=== PATIENT | male | born 1955 | race Asian ===

== ENCOUNTER 2024-12-29 21:37 | Inpatient (IN) | payer OTHER ==
[~2024-12-29] VITALS: Ht 172.7 cm; Wt 75.3 kg
[2024-12-29] MEDS ORDERED: GABA100C PO (21:53)
[2024-12-29] MEDS ORDERED: FOLI0.8T43 PO (21:53)
[2024-12-29] MEDS ORDERED: ATOR80TA PO (21:53)
[2024-12-29] MEDS ORDERED: ACET325T53 PO (21:53)
[2024-12-29] MEDS ORDERED: AMLO10TA59 PO (21:53)
[2024-12-29] MEDS ORDERED: GUAI100S69 PO (21:53)
[2024-12-29] MEDS ORDERED: HYDR-4077 PO (21:53)
[2024-12-29] MEDS ORDERED: TEMA7.5C PO (21:53)
[2024-12-29] MEDS ORDERED: FURO40TA5 PO (21:53)
[2024-12-29] MEDS ORDERED: ASPI81TA31 PO (21:53)
[2024-12-29] MEDS ORDERED: FAMO20TA8 PO (21:53)
[2024-12-29] MEDS ORDERED: BACL5TAB PO (21:53)
[2024-12-29] MEDS ORDERED: CARV25TA2 PO (21:53)
[2024-12-29] MEDS ORDERED: LOSA100T31 PO (21:53)
[2024-12-29] MEDS ORDERED: SEVE800T8 PO (21:53)
[2024-12-29 22:06] LABS: BASOPHILS % (AUTO) 0.3 % (0.0-2.0); EOSINOPHILS # (AUTO) 0.3 K/uL (0.0-0.7); EOSINOPHILS % (AUTO) 1.9 % (0.0-7.0); HEMATOCRIT 30.2 % (36.7-47.1); HEMOGLOBIN 10.2 g/dL (12.5-16.3); LYMPHOCYTES # (AUTO) 0.6 K/uL (0.8-4.8); LYMPHOCYTES % (AUTO) 4.5 % (20.5-51.5); MEAN CORPUSCULAR HGB CONC 34 g/dL (32.5-36.3); MEAN CORPUSCULAR VOLUME 98.2 fL (73.0-96.2); MONOCYTES # (AUTO) 0.9 K/uL (0.1-1.30); MONOCYTES % (AUTO) 6.5 % (0.0-11.0); NEUTROPHILS # (AUTO) 12.1 K/uL (1.8-8.9); NEUTROPHILS % (AUTO) 86.8 % (38.5-71.5); PLATELET COUNT (AUTO) 103 K/uL (152-348); RED BLOOD CELL COUNT(AUTO) 3.08 MIL/uL (4.06-5.63); RED CELL DISTRIBUTION WIDTH 17.9 % (12.1-16.2)
[2024-12-29 22:15] LABS: DIFFERENTIAL COMMENT 1
[2024-12-29 22:25] LABS: CARBON DIOXIDE 29 mmol/L (21-32); CHLORIDE 101 mmol/L (98-107); GLUCOSE 142 mg/dL (74-106); SODIUM SERUM 139 mmol/L (136-145)
[2024-12-29 22:28] LABS: POTASSIUM 7.5 mmol/L (3.5-5.1); UREA NITROGEN, BLOOD 100 mg/dL (7-18)
[2024-12-29 22:29] LABS: CREATININE 11.3 mg/dL (0.6-1.3)
[2024-12-29 22:37] LABS: ALANINE AMINOTRANSFERASE 23 U/L (16-63); ALBUMIN 3.3 g/dL (3.4-5.0); ALKALINE PHOSPHATASE 137 U/L (50-136); ASPARTATE AMINOTRANSFERASE 17 U/L (15-37); BILIRUBIN,DIRECT 0.2 mg/dL (0.0-0.2); BILIRUBIN,TOTAL 0.6 mg/dL (0.2-1.0); NT-PRO BNP 45077 pg/mL (0-125); TOTAL PROTEIN, SERUM 7.3 g/dL (6.4-8.2)
[2024-12-29 22:43] VITALS: O2SAT 97
[2024-12-29] MEDS: CEFEPIME HCL 2 G in IV DEXTROSE 5% 100 ML IV ONE (22:45)
[2024-12-29] MEDS ORDERED: CEFEPIME HCL 1 G VIAL ONE (22:50)
[2024-12-29] MEDS ORDERED: DEXTROSE 50% 50 ML DISP.SYRIN ONE (22:50)
[2024-12-29] MEDS ORDERED: SODIUM BICARBONATE 8.4% 50 MEQ/50 ML DISP.SYRIN IV ONE (22:50)
[2024-12-29] MEDS ORDERED: INSULIN REGULAR, HUMAN 1000 UNIT/10 ML VIAL ONE (22:51)
[2024-12-29 22:59] VITALS: O2SAT 97
[2024-12-29] MEDS ORDERED: CALCIUM GLUCONATE 1 GM/10 ML VIAL IV ONE (22:59)
[2024-12-29] MEDS: ALBUTEROL SULFATE 2.5 MG/3 ML NEBU NEB ONE (22:59)
[2024-12-29] MEDS ORDERED: ALBUTEROL SULFATE 2.5 MG/3 ML NEBU ONE (23:05)
[2024-12-29] MEDS: SODIUM BICARBONATE 8.4% 50 MEQ/50 ML VIAL IV ONE (23:25)
[2024-12-29] MEDS: DEXTROSE 50% 50 ML DISP.SYRIN IV ONE (23:27)
[2024-12-29] MEDS: INSULIN REGULAR, HUMAN 1000 UNIT/10 ML VIAL IV ONE (23:28)
[2024-12-29] MEDS: CALCIUM GLUCONATE IV 1 GM in IV DEXTROSE 5% 50 ML IV ONE (23:28)
[2024-12-29 23:45] VITALS: O2SAT 100
[2024-12-30] VITALS (11 sets, daily range): BP systolic 98–164; BP diastolic 29–72; TEMP 98–99.2; O2SAT 35–100
[2024-12-30] MEDS ORDERED: MAGNESIUM HYDROXIDE 30 ML LIQUID UDC PO PRN (00:45)
[2024-12-30] MEDS ORDERED: ONDANSETRON 4 MG/2 ML VIAL IV PRN (00:45)
[2024-12-30] MEDS ORDERED: ACETAMINOPHEN 325 MG TABLET PO PRN (00:45)
[2024-12-30] MEDS ORDERED: AZITHROMYCIN 500MG/ D5W 250ML IVPB **ER PYXIS ONLY IV ONE (01:08)
[2024-12-30] MEDS: AZITHROMYCIN IV 500 MG in IV DEXTROSE 5% 250 ML IV SCH (01:22)
[2024-12-30] MEDS ORDERED: DEXTROSE 50% 50 ML DISP.SYRIN IV PRN (03:30)
[2024-12-30 04:59] LABS: ABG BASE EXCESS 0.7 mmol/L (-2.0-3.0); ABG PCO2 44.3 mmHg (35.0-48.0); ABG PH 7.386 (7.350-7.450); ABG PO2 79.1 mmHg (83.0-108.0); ABG SITE LEFT RADIAL; ABG TOTAL HEMOGLOBIN 10.7 G/dL (13.5-17.5); AaDO2 95.5 mmHg; COHb 1.2 % (0.5-1.5)
[2024-12-30 05:01] LABS: ABG BASE EXCESS 6.1 mmol/L (-2.0-3.0); ABG HCO3 30.8 mmol/L (21.0-28.0); ABG PCO2 45.1 mmHg (35.0-48.0); ABG PH 7.452 (7.350-7.450); ABG PO2 138.1 mmHg (83.0-108.0); ABG SITE LEFT RADIAL; ABG TOTAL HEMOGLOBIN 10.8 G/dL (13.5-17.5); AaDO2 98.8 mmHg; MetHb 0.1 % (0.0-1.5); O2Hb 98.7 % (94.0-98.0)
[2024-12-30] MEDS: BLOOD SUGAR DIAGNOSTIC 1 EACH STRIP VI SCH (07:30)
[2024-12-30] MEDS: SEVELAMER CARBONATE 800 MG TABLET PO SCH (08:00)
[2024-12-30] MEDS ORDERED: BACLOFEN 10 MG TABLET PO SCH (09:00)
[2024-12-30] MEDS: ASPIRIN 81 MG TAB.CHEW PO SCH (09:00)
[2024-12-30] MEDS: FOLIC ACID/VITAMIN B COMP W-C TABLET PO SCH (09:00)
[2024-12-30] MEDS: CARVEDILOL 25 MG TABLET PO SCH (09:00)
[2024-12-30] MEDS ORDERED: FAMOTIDINE 20 MG TABLET PO SCH ×2 (09:00)
[2024-12-30] MEDS: PANTOPRAZOLE SODIUM 40 MG VIAL IV SCH (09:00)
[2024-12-30] MEDS: AMLODIPINE 10 MG TABLET PO SCH (09:00)
[2024-12-30] MEDS: FUROSEMIDE 40 MG TABLET PO SCH (09:00)
[2024-12-30] MEDS: HEPARIN SODIUM,PORCINE 5,000 UNITS/ML VIAL SQ SCH (10:15)
[2024-12-30 10:16] LABS: CARBON DIOXIDE 31 mmol/L (21-32); CHLORIDE 99 mmol/L (98-107); GLUCOSE 88 mg/dL (74-106); POTASSIUM 5.7 mmol/L (3.5-5.1); SODIUM SERUM 139 mmol/L (136-145); UREA NITROGEN, BLOOD 59 mg/dL (7-18)
[2024-12-30 10:23] LABS: CREATININE 7.7 mg/dL (0.6-1.3)
[2024-12-30] MEDS ORDERED: HEPARIN SODIUM,PORCINE 5,000 UNITS/ML VIAL ONE (14:59)
[2024-12-30] MEDS: BACLOFEN 10 MG TABLET PO SCH (17:24)
[2024-12-30] MEDS: PIPERACILLIN/TAZO 2.25 G in IV DEXTROSE 5% 50 ML IV SCH (18:50)
[2024-12-30] MEDS: ATORVASTATIN 40 MG TABLET PO SCH (20:30)
[2024-12-30] MEDS: GABAPENTIN 100 MG CAPSULE PO SCH (20:30)
[2024-12-30] MEDS ORDERED: CEFTRIAXONE 1 G in IV DEXTROSE 5% 50 ML IV SCH (22:00)
[2024-12-30] MEDS ORDERED: AZITHROMYCIN IV 500 MG in IV DEXTROSE 5% 250 ML IV SCH (23:00)
[2024-12-31] VITALS (9 sets, daily range): BP systolic 110–133; BP diastolic 43–54; TEMP 97.4–99.4; O2SAT 93–100
[2024-12-31 07:00] LABS: BASOPHILS % (AUTO) 0.3 % (0.0-2.0); EOSINOPHILS # (AUTO) 0.3 K/uL (0.0-0.7); EOSINOPHILS % (AUTO) 3.3 % (0.0-7.0); HEMATOCRIT 25.6 % (36.7-47.1); HEMOGLOBIN 8.8 g/dL (12.5-16.3); LYMPHOCYTES # (AUTO) 0.9 K/uL (0.8-4.8); MEAN CORPUSCULAR HEMOGLOBIN 33.8 uug (23.8-33.4); MEAN CORPUSCULAR HGB CONC 35 g/dL (32.5-36.3); MONOCYTES # (AUTO) 0.9 K/uL (0.1-1.30); MONOCYTES % (AUTO) 8.9 % (0.0-11.0); NEUTROPHILS # (AUTO) 7.6 K/uL (1.8-8.9); NEUTROPHILS % (AUTO) 78.5 % (38.5-71.5); PLATELET COUNT (AUTO) 75 K/uL (152-348); RED BLOOD CELL COUNT(AUTO) 2.61 MIL/uL (4.06-5.63); RED CELL DISTRIBUTION WIDTH 17.6 % (12.1-16.2); WHITE BLOOD COUNT (AUTO) 9.7 K/uL (3.6-10.2)
[2024-12-31 07:23] LABS: DIFFERENTIAL COMMENT 1
[2024-12-31 07:30] LABS: CALCIUM 9.1 mg/dL (8.5-10.1); CARBON DIOXIDE 31 mmol/L (21-32); CHLORIDE 100 mmol/L (98-107); GLUCOSE 96 mg/dL (74-106); MAGNESIUM 2.2 mg/dL (1.8-2.4); POTASSIUM 5.9 mmol/L (3.5-5.1); SODIUM SERUM 141 mmol/L (136-145); UREA NITROGEN, BLOOD 79 mg/dL (7-18)
[2024-12-31 07:43] LABS: CREATININE 9.7 mg/dL (0.6-1.3); PHOSPHOROUS 8.9 mg/dL (2.5-4.9)
[2024-12-31 08:28] LABS: ABG BASE EXCESS 1.9 mmol/L (-2.0-3.0); ABG HCO3 26.8 mmol/L (21.0-28.0); ABG PCO2 42.9 mmHg (35.0-48.0); ABG PH 7.413 (7.350-7.450); ABG PO2 65.4 mmHg (83.0-108.0); ABG SITE LEFT RADIAL; ABG TOTAL HEMOGLOBIN 9.8 G/dL (13.5-17.5); AaDO2 93.1 mmHg; COHb 0.7 % (0.5-1.5); MetHb 0.3 % (0.0-1.5); O2Hb 89.5 % (94.0-98.0)
[2024-12-31] MEDS: PANTOPRAZOLE SODIUM 40 MG TABLET.DR PO SCH (08:54)
[2024-12-31] MEDS: INSULIN REGULAR, HUMAN 1000 UNIT/10 ML VIAL SQ PRN (12:11)
[2024-12-31] MEDS: MEROPENEM 500 MG in IV NORMAL SALINE 50 ML IV SCH (20:06)
[2024-12-31] MEDS ORDERED: MEROPENEM 500 MG in IV NORMAL SALINE 50 ML IV SCH (21:00)
[2025-01-01] VITALS (8 sets, daily range): BP systolic 113–164; BP diastolic 45–60; TEMP 97.8–99.9; O2SAT 94–97
[2025-01-01 07:32] LABS: BASOPHILS % (AUTO) 0.3 % (0.0-2.0); EOSINOPHILS # (AUTO) 0.3 K/uL (0.0-0.7); EOSINOPHILS % (AUTO) 4.9 % (0.0-7.0); HEMATOCRIT 27.6 % (36.7-47.1); HEMOGLOBIN 9.1 g/dL (12.5-16.3); LYMPHOCYTES # (AUTO) 0.5 K/uL (0.8-4.8); LYMPHOCYTES % (AUTO) 7.3 % (20.5-51.5); MEAN CORPUSCULAR HEMOGLOBIN 33.3 uug (23.8-33.4); MEAN CORPUSCULAR HGB CONC 33 g/dL (32.5-36.3); MEAN CORPUSCULAR VOLUME 100.6 fL (73.0-96.2); MONOCYTES # (AUTO) 0.8 K/uL (0.1-1.30); MONOCYTES % (AUTO) 11.6 % (0.0-11.0); NEUTROPHILS # (AUTO) 5.2 K/uL (1.8-8.9); NEUTROPHILS % (AUTO) 75.9 % (38.5-71.5); PLATELET COUNT (AUTO) 65 K/uL (152-348); RED BLOOD CELL COUNT(AUTO) 2.74 MIL/uL (4.06-5.63); RED CELL DISTRIBUTION WIDTH 17.8 % (12.1-16.2); WHITE BLOOD COUNT (AUTO) 6.9 K/uL (3.6-10.2)
[2025-01-01 07:41] LABS: CALCIUM 9.3 mg/dL (8.5-10.1); CARBON DIOXIDE 25 mmol/L (21-32); CHLORIDE 99 mmol/L (98-107); GLUCOSE 88 mg/dL (74-106); MAGNESIUM 2.2 mg/dL (1.8-2.4); PHOSPHOROUS 6.2 mg/dL (2.5-4.9); POTASSIUM 5.2 mmol/L (3.5-5.1); SODIUM SERUM 138 mmol/L (136-145); UREA NITROGEN, BLOOD 58 mg/dL (7-18)
[2025-01-01 07:42] LABS: DIFFERENTIAL COMMENT 1
[2025-01-01 07:47] LABS: C-REACTIVE PROTEIN 18.76 mg/dL (0.00-0.30)
[2025-01-01] MEDS: hydrALAZINE HCL 50 MG TABLET PO PRN (20:35)
[2025-01-02 03:11] LABS: HEPATITIS B SURFACE AB, QUAL Reactive (.); HEPATITIS B SURFACE AG Negative (Negative)
[2025-01-02 06:10] VITALS: BP 144/52; TEMP 98.2; O2SAT 95
[2025-01-02 07:32] LABS: BASOPHILS % (AUTO) 0.5 % (0.0-2.0); EOSINOPHILS # (AUTO) 0.2 K/uL (0.0-0.7); EOSINOPHILS % (AUTO) 4.6 % (0.0-7.0); HEMATOCRIT 25.3 % (36.7-47.1); HEMOGLOBIN 8.6 g/dL (12.5-16.3); LYMPHOCYTES # (AUTO) 0.9 K/uL (0.8-4.8); LYMPHOCYTES % (AUTO) 19.4 % (20.5-51.5); MEAN CORPUSCULAR HEMOGLOBIN 33.3 uug (23.8-33.4); MEAN CORPUSCULAR HGB CONC 34 g/dL (32.5-36.3); MEAN CORPUSCULAR VOLUME 98.2 fL (73.0-96.2); MONOCYTES # (AUTO) 0.7 K/uL (0.1-1.30); NEUTROPHILS # (AUTO) 2.8 K/uL (1.8-8.9); NEUTROPHILS % (AUTO) 60.5 % (38.5-71.5); PLATELET COUNT (AUTO) 60 K/uL (152-348); RED BLOOD CELL COUNT(AUTO) 2.57 MIL/uL (4.06-5.63); RED CELL DISTRIBUTION WIDTH 17.1 % (12.1-16.2); WHITE BLOOD COUNT (AUTO) 4.6 K/uL (3.6-10.2)
[2025-01-02 07:37] LABS: AMMONIA < 10 umol/L (11-32)
[2025-01-02 07:39] LABS: ALANINE AMINOTRANSFERASE 30 U/L (16-63); ALBUMIN 2.4 g/dL (3.4-5.0); ALKALINE PHOSPHATASE 95 U/L (50-136); ASPARTATE AMINOTRANSFERASE 32 U/L (15-37); BILIRUBIN,DIRECT 0.3 mg/dL (0.0-0.2); BILIRUBIN,TOTAL 0.7 mg/dL (0.2-1.0); CALCIUM 9.3 mg/dL (8.5-10.1); CARBON DIOXIDE 32 mmol/L (21-32); CHLORIDE 102 mmol/L (98-107); CREATININE 6.6 mg/dL (0.6-1.3); GLUCOSE 81 mg/dL (74-106); MAGNESIUM 2.1 mg/dL (1.8-2.4); PHOSPHOROUS 6.7 mg/dL (2.5-4.9); POTASSIUM 4.7 mmol/L (3.5-5.1); SODIUM SERUM 142 mmol/L (136-145); TOTAL PROTEIN, SERUM 6.4 g/dL (6.4-8.2); UREA NITROGEN, BLOOD 42 mg/dL (7-18)
[2025-01-02 07:45] LABS: DIFFERENTIAL COMMENT 1
[2025-01-02 11:43] VITALS: BP 124/49; TEMP 98.7; O2SAT 96
[2025-01-02 11:56] VITALS: O2SAT 96
[2025-01-02 14:39] LABS: BAND % (MANUAL) 4 % (0-10); EOSINOPHILS % (MANUAL) 4 % (0-8); LYMPHOCYTES % (MANUAL) 23 % (20-40); MONOCYTES % (MANUAL) 14 % (2-10); NEUTROPHILS % (MANUAL) 55 % (42-75)
[2025-01-02 14:40] LABS: ANISOCYTOSIS 1+; PLATELET ESTIMATE DECREASED
[2025-01-02 16:11] VITALS: BP 118/46; TEMP 98.2; O2SAT 89
[2025-01-02 17:28] VITALS: O2SAT 96
[2025-01-02] MEDS: SEVELAMER CARBONATE 800 MG POWD.PACK GT SCH (18:00)
[2025-01-02] MEDS: NEPRO (VANILLA) 237 ML CAN PO SCH (18:23)
[2025-01-02 19:00] VITALS: BP 95/34; TEMP 97.9; O2SAT 100
[2025-01-03] VITALS (9 sets, daily range): BP systolic 111–138; BP diastolic 50–72; TEMP 97.5–97.7; O2SAT 95–100
[2025-01-03 06:51] LABS: BASOPHILS % (AUTO) 0.4 % (0.0-2.0); EOSINOPHILS # (AUTO) 0.4 K/uL (0.0-0.7); EOSINOPHILS % (AUTO) 8.2 % (0.0-7.0); HEMOGLOBIN 8.5 g/dL (12.5-16.3); LYMPHOCYTES # (AUTO) 1.1 K/uL (0.8-4.8); LYMPHOCYTES % (AUTO) 22.6 % (20.5-51.5); MEAN CORPUSCULAR HGB CONC 34 g/dL (32.5-36.3); MEAN CORPUSCULAR VOLUME 97.2 fL (73.0-96.2); MONOCYTES # (AUTO) 0.6 K/uL (0.1-1.30); MONOCYTES % (AUTO) 13.7 % (0.0-11.0); NEUTROPHILS # (AUTO) 2.6 K/uL (1.8-8.9); NEUTROPHILS % (AUTO) 55.1 % (38.5-71.5); PLATELET COUNT (AUTO) 59 K/uL (152-348); RED BLOOD CELL COUNT(AUTO) 2.57 MIL/uL (4.06-5.63); WHITE BLOOD COUNT (AUTO) 4.7 K/uL (3.6-10.2)
[2025-01-03 07:00] LABS: CALCIUM 8.8 mg/dL (8.5-10.1); CARBON DIOXIDE 33 mmol/L (21-32); CHLORIDE 101 mmol/L (98-107); CREATININE 5.6 mg/dL (0.6-1.3); GLUCOSE 95 mg/dL (74-106); MAGNESIUM 2.2 mg/dL (1.8-2.4); PHOSPHOROUS 5.9 mg/dL (2.5-4.9); POTASSIUM 4.6 mmol/L (3.5-5.1); SODIUM SERUM 140 mmol/L (136-145); UREA NITROGEN, BLOOD 43 mg/dL (7-18)
[2025-01-03 07:12] LABS: DIFFERENTIAL COMMENT 1
[2025-01-03] MEDS ORDERED: ASPIRIN 81 MG TAB.CHEW PO SCH (09:00)
[2025-01-03] MEDS: REMEDY ESSENTIAL ZINC PASTE 113 GM TP PRN (09:55)
[2025-01-03 11:41] LABS: ABG BASE EXCESS 5.5 mmol/L (-2.0-3.0); ABG PCO2 50.6 mmHg (35.0-48.0); ABG PH 7.405 (7.350-7.450); ABG PO2 105.7 mmHg (83.0-108.0); ABG SITE RIGHT RADIAL; ABG TOTAL HEMOGLOBIN 9.1 G/dL (13.5-17.5); AaDO2 97.8 mmHg; COHb 0.7 % (0.5-1.5); O2Hb 96.8 % (94.0-98.0)
[2025-01-04 04:09] VITALS: O2SAT 96
[2025-01-04 06:00] VITALS: BP 123/50; TEMP 98.1; O2SAT 94
[2025-01-04 06:54] LABS: BASOPHILS % (AUTO) 0.4 % (0.0-2.0); EOSINOPHILS # (AUTO) 0.5 K/uL (0.0-0.7); EOSINOPHILS % (AUTO) 8.2 % (0.0-7.0); HEMATOCRIT 23.6 % (36.7-47.1); HEMOGLOBIN 8.1 g/dL (12.5-16.3); LYMPHOCYTES % (AUTO) 17.7 % (20.5-51.5); MEAN CORPUSCULAR HEMOGLOBIN 33.1 uug (23.8-33.4); MEAN CORPUSCULAR HGB CONC 35 g/dL (32.5-36.3); MONOCYTES # (AUTO) 0.4 K/uL (0.1-1.30); MONOCYTES % (AUTO) 7.7 % (0.0-11.0); NEUTROPHILS # (AUTO) 3.6 K/uL (1.8-8.9); PLATELET COUNT (AUTO) 59 K/uL (152-348); RED CELL DISTRIBUTION WIDTH 16.6 % (12.1-16.2); WHITE BLOOD COUNT (AUTO) 5.5 K/uL (3.6-10.2)
[2025-01-04 07:20] LABS: DIFFERENTIAL COMMENT 1; RED BLOOD CELL COUNT(AUTO) 2.46 MIL/uL (4.06-5.63)
[2025-01-04 07:22] LABS: ALANINE AMINOTRANSFERASE 56 U/L (16-63); ALBUMIN 2.3 g/dL (3.4-5.0); ALKALINE PHOSPHATASE 125 U/L (50-136); ASPARTATE AMINOTRANSFERASE 63 U/L (15-37); BILIRUBIN,TOTAL 0.5 mg/dL (0.2-1.0); CALCIUM 9.6 mg/dL (8.5-10.1); CARBON DIOXIDE 30 mmol/L (21-32); CHLORIDE 100 mmol/L (98-107); GLUCOSE 100 mg/dL (74-106); MAGNESIUM 2.3 mg/dL (1.8-2.4); PHOSPHOROUS 7.4 mg/dL (2.5-4.9); POTASSIUM 4.7 mmol/L (3.5-5.1); SODIUM SERUM 140 mmol/L (136-145); TOTAL PROTEIN, SERUM 6.4 g/dL (6.4-8.2); UREA NITROGEN, BLOOD 67 mg/dL (7-18)
[2025-01-04 07:30] LABS: CREATININE 7.9 mg/dL (0.6-1.3)
[2025-01-04 11:56] VITALS: BP 111/54; TEMP 97.6; O2SAT 99
[2025-01-04 16:06] VITALS: BP 110/47; TEMP 97.6; O2SAT 97
[2025-01-04 16:09] VITALS: O2SAT 95
[2025-01-04] MEDS: SEVELAMER CARBONATE 800 MG TABLET PO SCH (17:55)
[2025-01-04 20:29] VITALS: BP 132/48; TEMP 97.5; O2SAT 96
[2025-01-05 00:14] VITALS: O2SAT 97
[2025-01-05 05:30] VITALS: BP 135/55; TEMP 97.6; O2SAT 96
[2025-01-05 06:51] LABS: BASOPHILS % (AUTO) 0.2 % (0.0-2.0); EOSINOPHILS # (AUTO) 0.4 K/uL (0.0-0.7); EOSINOPHILS % (AUTO) 8.2 % (0.0-7.0); HEMATOCRIT 26.9 % (36.7-47.1); HEMOGLOBIN 9.3 g/dL (12.5-16.3); LYMPHOCYTES # (AUTO) 0.9 K/uL (0.8-4.8); LYMPHOCYTES % (AUTO) 19.7 % (20.5-51.5); MEAN CORPUSCULAR HEMOGLOBIN 32.5 uug (23.8-33.4); MEAN CORPUSCULAR HGB CONC 35 g/dL (32.5-36.3); MEAN CORPUSCULAR VOLUME 94.2 fL (73.0-96.2); MONOCYTES # (AUTO) 0.3 K/uL (0.1-1.30); MONOCYTES % (AUTO) 6.2 % (0.0-11.0); NEUTROPHILS % (AUTO) 65.7 % (38.5-71.5); PLATELET COUNT (AUTO) 66 K/uL (152-348); RED BLOOD CELL COUNT(AUTO) 2.86 MIL/uL (4.06-5.63); RED CELL DISTRIBUTION WIDTH 16.6 % (12.1-16.2); WHITE BLOOD COUNT (AUTO) 4.5 K/uL (3.6-10.2)
[2025-01-05 06:59] LABS: CARBON DIOXIDE 33 mmol/L (21-32); CHLORIDE 99 mmol/L (98-107); CREATININE 5.7 mg/dL (0.6-1.3); GLUCOSE 105 mg/dL (74-106); MAGNESIUM 2.1 mg/dL (1.8-2.4); PHOSPHOROUS 5.2 mg/dL (2.5-4.9); POTASSIUM 3.9 mmol/L (3.5-5.1); SODIUM SERUM 138 mmol/L (136-145); UREA NITROGEN, BLOOD 49 mg/dL (7-18)
[2025-01-05 07:09] LABS: DIFFERENTIAL COMMENT 1
[2025-01-05 08:13] VITALS: BP 143/45; TEMP 97.8; O2SAT 97
[2025-01-05 08:26] LABS: ANISOCYTOSIS 1+; EOSINOPHILS % (MANUAL) 8 % (0-8); LYMPHOCYTES % (MANUAL) 20 % (20-40); MONOCYTES % (MANUAL) 6 % (2-10); NEUTROPHILS % (MANUAL) 66 % (42-75); PLATELET ESTIMATE DECREASED
[2025-01-05 09:14] VITALS: O2SAT 95
[2025-01-05 13:08] VITALS: O2SAT 96
[2025-01-05] MEDS ORDERED: ACID1TAB4 PO (15:37)
[2025-01-05] MEDS ORDERED: MENT113O TP (15:37)
[2025-01-05] MEDS ORDERED: ACET325T53 PO (15:37)
[2025-01-05] MEDS ORDERED: ALBU2.5V13 NEB (15:37)
[2025-01-05] MEDS ORDERED: MERO500V23 IV (15:37)
[2025-01-05 17:11] VITALS: BP 123/47
== END 2025-01-05 20:25 | DRG 720 ==
LOC: ER 21:37 → ICU IN 12-30 00:49 → TELE3 12-30 16:05 → MEDSURG3 01-01 08:41
PROC: 5A1D70Z Performance of Urinary Filtration, Intermittent, Less than 6 Hours Per Day (ICD-10-PCS; principal; 2024-12-30)
PROC: 5A09357 Assistance with Respiratory Ventilation, Less than 24 Consecutive Hours, Continuous Positive Airway Pressure (ICD-10-PCS; principal; 2024-12-30)
DX: A41.9 Sepsis, unspecified organism (principal); J96.01 Acute respiratory failure with hypoxia; N17.0 Acute kidney failure with tubular necrosis; J69.0 Pneumonitis due to inhalation of food and vomit; G92.8 Other toxic encephalopathy; I50.33 Acute on chronic diastolic (congestive) heart failure; J15.69 Pneumonia due to other Gram-negative bacteria; N18.6 End stage renal disease; D68.59 Other primary thrombophilia; Z74.09 Other reduced mobility; Z95.1 Presence of aortocoronary bypass graft; I69.351 Hemiplegia and hemiparesis following cerebral infarction affecting right dominant side; I25.10 Atherosclerotic heart disease of native coronary artery without angina pectoris; I13.2 Hypertensive heart and chronic kidney disease with heart failure and with stage 5 chronic kidney disease, or end stage renal disease; E66.9 Obesity, unspecified; Z68.25 Body mass index [BMI] 25.0-25.9, adult; E87.5 Hyperkalemia; E78.5 Hyperlipidemia, unspecified; E88.09 Other disorders of plasma-protein metabolism, not elsewhere classified; G89.29 Other chronic pain; M15.9 Polyosteoarthritis, unspecified; I35.0 Nonrheumatic aortic (valve) stenosis; K21.9 Gastro-esophageal reflux disease without esophagitis; I69.320 Aphasia following cerebral infarction; E11.22 Type 2 diabetes mellitus with diabetic chronic kidney disease; Z79.82 Long term (current) use of aspirin; M54.50 Low back pain, unspecified; Z79.899 Other long term (current) drug therapy; D64.9 Anemia, unspecified
CPT/HCPCS: 36415; 36600; 70450; 71045; 82803; 83605; 83735; 84100; 84484; 85025; 85730; 86140; 86706; 87040; 87340; 93307; 94660; 94760; A4606; G0378; J0456; J0612; J0692; J0696; J1644; J1815; J2185; J2543; J3490; J7040; J7050